=== PATIENT | male | born 1955 | race Caucasian/White ===

== ENCOUNTER 2021-08-14 15:18 | Emergency (ER) | payer MEDICARE ==
[~2021-08-14 15:18] MED LIST: BACITRACIN3.5 GM OP; BACTRIM DS TAB1 EACH PO; CYCLOBENZAPRINE10 MG PO; FLOMAX 0.4 MG0.4 MG PO; HYDROCODON-ACE1 EAC6 PO; LIDOCAINE PAIN1 EACH TOP; LOPRESSOR 25 MG25 MG PO; LYRICA300 MG PO; MOBIC7.5 MG PO; PERCOCET 5-3251 EACH PO; PROSCAR5 MG PO; REQUIP XL2 MG PO; ROBAXIN-750750 MG PO; SEROQUEL100 MG PO; VANCOMYCIN1.25 GM/22 IV; XYLOCAINE 5% OI35 GM TOP; ZOCOR40 MG PO; ZYRTEC10 M3 PO
[2021-08-14] MEDS ORDERED: BENZONATATE100 MG PO (17:01)
== END 2021-08-14 17:16 | disposition home or self-care (01) ==
LOC: ER1 15:18
DX: J06.9 Acute upper respiratory infection, unspecified (principal); I10 Essential (primary) hypertension; Z20.822 Contact with and (suspected) exposure to COVID-19
CPT/HCPCS: 71045; 99283; U0002

== ENCOUNTER 2022-02-02 09:47 | Emergency (ER) | payer MEDICARE ==
[~2022-02-02 09:47] MED LIST changes: +BENZONATATE100 MG PO
[2022-02-02 12:08] LABS: HEMOGLOBIN 14.5 gm/dl (14.0-17.5); RED BLOOD COUNT 5.09 M/UL (4.20-5.50); WHITE BLOOD COUNT 8.3 K/UL (4.5-11.0)
[2022-02-02 12:30] LABS: BUN/CREATININE RATIO 21 (0-10)
== END 2022-02-02 15:46 | disposition home or self-care (01) ==
LOC: ER1 09:47
PROVIDERS: Physician Assistant
DX: S39.011A Strain of muscle, fascia and tendon of abdomen, initial encounter (principal); M51.37 Other intervertebral disc degeneration, lumbosacral region; M47.817 Spondylosis without myelopathy or radiculopathy, lumbosacral region; M48.07 Spinal stenosis, lumbosacral region; N50.812 Left testicular pain; I10 Essential (primary) hypertension; X58.XXXA Exposure to other specified factors, initial encounter
CPT/HCPCS: 76870; 80053; 81001; 85025; 99284